=== PATIENT | female | born 1990 | race Two or more races ===

== ENCOUNTER → 2016-09-25 | Outpatient (REF) | payer OTHER | LOC: M SMT 16:58 | PROVIDERS: ATTEND Nurse Practitioner Women's Health | DX: N20.0 Calculus of kidney (principal) ==

== ENCOUNTER → 2016-10-07 | Outpatient (REF) | payer OTHER | LOC: M SMT 13:09 | PROVIDERS: ATTEND Nurse Practitioner Women's Health | DX: N39.0 Urinary tract infection, site not specified (principal) ==